=== PATIENT | male | born 1975 | race African-American/Black ===

== ENCOUNTER 2024-11-14 18:04 | Emergency (ER) | payer BC, SELFPAY ==
[2024-11-14 18:08] VITALS: BP 145/94
--- NOTE | 2024-11-14 18:08 | ED.GENMED ---
ED Provider Triage
<Marcela Candelaria PA-C - Last Filed: 11/14/24 18:11>
-
Patient seen by provider in Triage?: Seen in Triage
Attestation: A medical screening examination has been initiated by a qualified medical provider. Based on the assessment performed at this time, it has been determined that an emergent medical condition may exist and the patient has been informed
that further medical evaluation and possible additional diagnostic testing may be needed.
HPI: 49yoM here after a fall down a flight of stairs 3 days ago. Landed on [facility]. Here with ongoing pain and SOB.
GENERAL: Alert , in no apparent distress
EYE: No visual abnormalities.
NECK: Trachea midline
ENT: No visible abnormalities.
LUNGS: No acute respiratory distress
NEUROLOGICAL: Alert and oriented
SKIN: Skin intact. No visible changes.
MUSCULOSKELETAL: Moving extremities normally
PSYCH: Normal and appropriate interaction.
This is a medical evaluation conducted in person to initiate diagnostic evaluation and provide initial therapeutics. Please see further documentation by the treating clinician.
Bilateral breath sounds equal. Rib series x-rays ordered.
History of Present Illness
<Marcela Candelaria PA-C - Last Filed: 11/14/24 18:11>
General
Chief Complaint: Fall
Time Seen by Provider: 11/14/24 21:09
<Quincy Yanez PA-C - Last Filed: 11/14/24 22:14>
General
Source: patient
History of Present Illness
History of Present Illness:
49-year-old male with no significant past medical history presents the emergency department for evaluation after falling down a flight of stairs this past Tuesday evening. He notes that since that time he has had some left-sided posterolateral rib
pain and difficulty deep inspiration as well as movements on the left-hand side patient denies any headache, loss consciousness or any other injuries to the extremities. Denies any use of anticoagulants. No other symptoms presently.
Past History
<Quincy Yanez PA-C - Last Filed: 11/14/24 22:14>
Past History
ED Past Medical History: None
ED Past Surgical History: None
Social History
Tobacco: Non-smoker
Alcohol: None
Drug: None
Personal:
Living: with family
Employment: Employed
Review of Systems
<Quincy Yanez PA-C - Last Filed: 11/14/24 22:14>
Review of Systems
All Other Systems: ROS reviewed and negative except as documented in HPI and ROS
Phy Exam
<Quincy Yanez PA-C - Last Filed: 11/14/24 22:14>
Physical Exam
Physical Exam:
GENERAL: Alert , in no apparent distress at rest but appears uncomfortable with movement or deep inspiration
EYE: conjunctiva clear
NECK: Supple
ENT: o/p clr, mmm.
CARDIAC: Regular rate and rhythm
LUNGS: Clear breath sounds bilaterally, no acute respiratory distress, no wheezes/rales/rhonchi
NEUROLOGICAL: Alert and oriented
SKIN: Warm and dry, skin intact.
MUSCULOSKELETAL: well perfused.
PSYCH: Normal and appropriate interaction.
Scores
<Quincy Yanez PA-C - Last Filed: 11/14/24 22:14>
Heart Failure Risk
Heart Failure Risk Score: Not Applicable
Heart Score for Chest Pain Patients
STEMI patient?: Not applicable
Withdrawal Assessment of Alcohol
Withdrawal Assessment Completed?: Not applicable
Course
<Marcela Candelaria PA-C - Last Filed: 11/14/24 18:11>
Orders/Labs/Results
Orders:
Orders
11/14/24 18:11
CR Ribs-left 3 Vw W/pa Chest Urgent
Comment:
Reason For Exam: L posterior lower rib pain
Vital Signs
Initial and Last Documented VS:
Initial Vital Signs
Temp Pulse Resp BP Pulse Ox
98.0 F 71 16 145/94 99
11/14/24 18:08 11/14/24 18:08 11/14/24 18:08 11/14/24 18:08 11/14/24 18:08
Last Documented Vital Signs
Temp Pulse Resp BP Pulse Ox
98.0 F 67 18 131/100 100
11/14/24 18:08 11/14/24 21:52 11/14/24 21:52 11/14/24 21:52 11/14/24 21:52
<Quincy aYnez PA-C - Last Filed: 11/14/24 22:14>
Orders/Labs/Results
Orders:
Orders
11/14/24 18:11
CR Ribs-left 3 Vw W/pa Chest Urgent
Comment:
Reason For Exam: L posterior lower rib pain
Vital Signs
Initial and Last Documented VS:
Initial Vital Signs
Temp Pulse Resp BP Pulse Ox
98.0 F 71 16 145/94 99
11/14/24 18:08 11/14/24 18:08 11/14/24 18:08 11/14/24 18:08 11/14/24 18:08
Last Documented Vital Signs
Temp Pulse Resp BP Pulse Ox
98.0 F 67 18 131/100 100
11/14/24 18:08 11/14/24 21:52 11/14/24 21:52 11/14/24 21:52 11/14/24 21:52
<Quincy Yanez PA-C - Last Filed: 11/14/24 22:14>
MDM/Problems Addressed
Differential Diagnosis Includes:
Rib contusion, rib fracture, pneumothorax, I do not have concern for any intracranial pathology given duration of time that has passed since fall and has no headache or neurologic symptoms
MDM/Problems Addressed:
49-year-old male presenting the ER for evaluation following accidental fall resulting in left-sided rib pain. Injury occurred this past Tuesday evening. Patient is hemodynamically well, no hypoxia and no acute respiratory distress. X-ray had been
ordered from triage and appears to show an 11th rib fracture but no pneumothorax. Patient was advised on these findings as well as rib fracture management. Offered pain medication however patient declines. Recommended he take Motrin/Tylenol as
needed for pain. Respiratory exercises advised. Patient otherwise stable for discharge home and aware of return precautions.
<Quincy Yanez PA-C - Last Filed: 11/14/24 22:14>
*Radiology
Radiology exam reviewed: preliminary read by ED provider (Isolated 11th rib fracture on the left)
*Pulse Oximetry
Patient hypoxic: no
*Critical Care Note
Total Time (30-74mins, 75-104mins- exclusive of procedures): Not Applicable
ED Attending Note
<Marcela Candelaria PA-C - Last Filed: 11/14/24 18:11>
-
Portions of this chart may have been created with voice recognition software.� Occasional wrong word or��sound alike� substitutions may have occurred due to the inherent limitations of voice recognition software.
Discharge Plan
Departure
Patient Disposition: Home (Routine Discharge)
Date of Disposition: 11/14/24
Time of Disposition: 21:43
Patient with high blood pressure during this ER visit?: Yes
Discharge Problem:
Rib fracture
Instructions: Rib fracture or bruised rib - ED discharge instructions
Referrals:
Cornelio Gonzalez CRNP [Family Provider] -
Interventions
Interventions:
*Risk Screen - Suicide Last Done: 11/14/24 20:41
*General Assessment Last Done: 11/14/24 21:55
*Neglect/Abuse Screening Last Done: 11/14/24 20:41
*Nursing Disposition Last Done: 11/14/24 21:55
ED-Musculoskeletal Assessment Last Done: 11/14/24 20:40
ED- Neurological Assessment Last Done: 11/14/24 20:39
ED-Skin Assessment Last Done: 11/14/24 20:39
Discharge Date and Time
Discharge Date/Time: 11/14/24 21:55
Print Language: THAI
[2024-11-14 21:52] VITALS: BP 131/100
== END 2024-11-14 21:55 | disposition home or self-care (01) ==
LOC: EMR 18:04
PROVIDERS: EMERGENCY PHYSICIAN Emergency Medicine; FAMILY PHYSICIAN Registered Nurse
DX: S22.32XA Fracture of one rib, left side, initial encounter for closed fracture (principal); W10.9XXA Fall (on) (from) unspecified stairs and steps, initial encounter
CPT/HCPCS: 99283; 71101

== ENCOUNTER 2025-03-04 06:19 | Day surgery (SDC) | payer BC, SELFPAY | END 2025-03-04 15:02 | disposition home or self-care (01) | LOC: GI 06:19 | PROVIDERS: ATTENDING PHYSICIAN Internal Medicine Gastroenterology | DX: Z12.11 Encounter for screening for malignant neoplasm of colon (principal); K64.8 Other hemorrhoids | CPT/HCPCS: G0121 ==

== ENCOUNTER → 2025-05-25 07:19 | Outpatient (REF) | payer BC, SELFPAY ==
[2025-05-25 08:39] LABS: % Basophils 0.4 % (0-2); % Eosinophils 3.4 % (0-6); % Immature Granulocytes 0.4 % (0-0.5); % Lymphocytes 35.5 % (20.5-51.1); % Monocytes 10.6 % (1.7-9.3); % Neutrophils 49.7 % (42.2-75.2); Absolute Eosinophils 0.2 10^3/uL (0-0.7); Absolute Monocytes 0.6 10^3/uL (0.1-0.6); Absolute Neutrophils 2.8 10^3/uL (1.4-6.5); Hematocrit 45.3 % (39.0-52.0); Hemoglobin 15.6 g/dL (13.0-18.0); Mean Corp Hgb Conc. 34.4 g/dL (33.0-37.0); Mean Corpuscular Volume 87.1 fL (80.0-94.0); Mean Platelet Volume 10.5 fL (7.4-10.4); Nucleated Red Blood Cells % 0 % (-); Platelet Count 234 10^3/uL (130-400); Red Cell Dist. Width 11.8 % (11.5-14.5); White Blood Cell Count 5.6 10^3/uL (4.8-10.8)
[2025-05-25 09:05] LABS: ALT (SGPT) 42 U/L (0-50); AST (SGOT) 32 U/L (17-59); Albumin 4.8 g/dl (3.5-5.0); Alkaline Phosphatase 98 U/L (38-126); Blood Urea Nitrogen 9 mg/dl (9-20); Calcium 9.6 mg/dl (8.4-10.2); Carbon Dioxide 28 mmol/L (22-30); Chloride 108 mmol/L (98-107); Glucose 92 mg/dl (70-99); HDL Cholesterol 43 mg/dl; LDL Cholesterol, Calculated 135 mg/dl; Potassium 4.5 mmol/L (3.5-5.1); Sodium 142 mmol/L (135-145); Total Bilirubin 1.3 mg/dl (0.2-1.3); Total Cholesterol 207 mg/dl (50-199); Total Protein 7.2 g/dl (6.3-8.2); Triglyceride 147 mg/dl (10-149); Very Low Density Lipoprotein 29 mg/dl (0-30); eGFR > 60.00
[2025-05-25 10:19] LABS: TSH Reflex To Free T4 0.83 uIU/ml (0.47-4.68)
== END ==
LOC: REG 07:19
PROVIDERS: ATTENDING PHYSICIAN Family Medicine
DX: Z00.00 Encounter for general adult medical examination without abnormal findings (principal)
CPT/HCPCS: 36415; 80053; 80061; 84443; 85025

== ENCOUNTER → 2025-06-29 07:08 | Outpatient (REF) | payer BC, SELFPAY ==
[2025-06-29 08:55] LABS: PSA, Total - Screen 0.83 ng/ml (0.0-4.0)
== END ==
LOC: REG 07:08
PROVIDERS: ATTENDING PHYSICIAN Family Medicine
DX: Z12.5 Encounter for screening for malignant neoplasm of prostate (principal)
CPT/HCPCS: 36415; G0103